=== PATIENT | female | born 1990 | race Hispanic/Latino ===

== ENCOUNTER 2017-01-19 09:56 | Emergency (ER) | payer OTHER ==
[2017-01-19 11:00] LABS: #Basophils 0.1 thou/uL (0.0-0.2); #Eosinphils 0.2 thou/uL (0.0-0.7); #Lymphocytes 1.7 thou/uL (1.20-3.40); #Monocytes 0.4 thou/uL (0.11-0.59); %Basophils 1.1 % (0.0-1.0); %Eosinophils 2.5 % (0.0-10.0); %Lymphocytes 27.4 % (21.0-51.0); %Monocytes 6.3 % (0.0-10.0); Hematocrit 41.7 % (36.0-47.0); Mean Platelet Volume 8.1 fL (7.4-10.4); Red Blood Cell (RBC) Count 4.27 mill/uL (4.20-5.40); White Blood Cell (WBC) Count 6.3 thou/uL (4.8-10.8)
[2017-01-19 11:27] LABS: ALT (SGPT) 17 U/L (8-55); AST (SGOT) 16 U/L (5-34); Alkaline Phosphatase 80 U/L (40-150); Anion Gap 10 mmol/L (10-20); BUN (Urea Nitrogen) 17 mg/dL (7.0-18.7); Bilirubin, Total 0.5 mg/dL (0.2-1.2); Calc. Creatinine Clearance 0 mL/min (70-130); Calcium 9.5 mg/dL (7.8-10.44); Carbon Dioxide 27 mmol/L (22-29); Chloride 107 mmol/L (98-107); Estimated GFR-MDRD Greater than 90; Globulin 3.3 g/dL (2.4-3.5); Lipase 21 U/L (8-78); Protein, Total 7.7 g/dL (6.0-8.3)
[2017-01-19 12:03] LABS: Bilirubin Negative (Negative); Blood, Urine Negative (Negative); Glucose, Urine (Dipstick) Negative (Negative); Ketone, Urine Negative (Negative); Nitrite Negative (Negative); Protein, Urine (Dipstick) Negative (Neg-Trace); Urobilinogen 0.2 mg/dL (0.2-1.0)
== END 2017-01-19 13:07 | disposition home or self-care (01) ==
LOC: ERS 09:56
DX: K62.5 Hemorrhage of anus and rectum (principal); G43.909 Migraine, unspecified, not intractable, without status migrainosus; J45.909 Unspecified asthma, uncomplicated; E03.9 Hypothyroidism, unspecified; F17.210 Nicotine dependence, cigarettes, uncomplicated
CPT/HCPCS: 36415; 80053; 81003; 81025; 82274; 83690; 85025; 94760

== ENCOUNTER 2018-01-16 12:44 | Emergency (ER) | payer OTHER, SELFPAY ==
[2018-01-16 13:05] LABS: #Eosinphils 0.1 thou/uL (0.0-0.7); #Monocytes 0.5 thou/uL (0.11-0.59); %Basophils 0.6 % (0.0-1.0); %Eosinophils 1.3 % (0.0-10.0); %Lymphocytes 26.6 % (21.0-51.0); %Monocytes 6.7 % (0.0-10.0); %Neutrophils 64.9 % (42.0-75.0); Hemoglobin 14.3 g/dL (12.0-16.0); Mean Corpuscular HGB CONC 33.2 g/dL (32.0-36.0); Mean Corpuscular Hemoglobin 32.7 pg (27.0-31.0); Mean Corpuscular Volume 98.5 fL (78.0-98.0); Mean Platelet Volume 8.3 fL (7.4-10.4); Platelet Count 274 thou/uL (130-400); RBC Distribution Width 11.8 % (11.5-14.5); Red Blood Cell (RBC) Count 4.39 mill/uL (4.20-5.40); White Blood Cell (WBC) Count 7.7 thou/uL (4.8-10.8)
[2018-01-16 13:18] LABS: Bilirubin Negative (Negative); Blood, Urine Negative (Negative); Clarity CLOUDY (Clear); Glucose, Urine (Dipstick) Negative (Negative); Leukocyte Moderate (Negative); Nitrite Negative (Negative); Protein, Urine (Dipstick) Trace mg/dL (Neg-Trace); Specific Gravity, Urine 1.037 (1.002-1.036); Urobilinogen 0.2 mg/dL (0.2-1.0); pH, Urine 5.5 (5.0-9.0)
[2018-01-16 13:20] LABS: Bacteria/HPF 2+ HPF (None Seen); Squamous Epithelial 21-50 HPF (0-3)
[2018-01-16 13:24] LABS: Pathc Cast-AUWi Flag 3.63 (0-2.49)
[2018-01-16 13:24] LABS: ALT (SGPT) 15 U/L (8-55); AST (SGOT) 16 U/L (5-34); Albumin 4.4 g/dL (3.5-5.0); Alkaline Phosphatase 73 U/L (40-150); Anion Gap 11 mmol/L (10-20); BUN (Urea Nitrogen) 15 mg/dL (7.0-18.7); Bilirubin, Total 0.8 mg/dL (0.2-1.2); Calc. Creatinine Clearance 0 mL/min (70-130); Calcium 9.5 mg/dL (7.8-10.44); Carbon Dioxide 24 mmol/L (22-29); Chloride 106 mmol/L (98-107); Estimated GFR-MDRD 89; Globulin 3.1 g/dL (2.4-3.5); Glucose 95 mg/dL (70-105); Lipase 16 U/L (8-78); Potassium 4.2 mmol/L (3.5-5.1); Protein, Total 7.5 g/dL (6.0-8.3); Sodium 137 mmol/L (136-145)
[2018-01-16 13:25] LABS: Pregnancy Test - Urine (BHCG) Negative (Negative); Pregu Control Background? CLEAR/WHITE (CLR/WHITE); Pregu Control Bar Appear? YES (CONTROL BAR); Specific Gravity 1.037 (1.002-1.036)
[2018-01-16] MEDS ORDERED: Ondansetron HCl/PF 4 MG/2 ML Vial ONE (13:26)
[2018-01-16 13:36] LABS: Hyaline Casts/LPF 0-3 HYALINE CAST LPF (0-3 Hyaline); Other Casts/LPF None Seen LPF (0-3 Hyaline)
[2018-01-16 13:44] LABS: RBC/HPF 0-3 HPF (0-3)
== END 2018-01-16 15:09 | disposition home or self-care (01) ==
LOC: ERS 12:44
DX: R82.71 Bacteriuria (principal); E03.9 Hypothyroidism, unspecified; G43.909 Migraine, unspecified, not intractable, without status migrainosus; J45.909 Unspecified asthma, uncomplicated; Z79.899 Other long term (current) drug therapy
CPT/HCPCS: 36415; 80053; 81003; 81015; 81025; 83690; 85025; 96361; 96374; J2405

== ENCOUNTER 2018-06-07 13:37 | Outpatient (CLI) | payer OTHER ==
--- NOTE | 2018-06-07 14:52 | ULT ---
THYROID ULTRASOUND: INDICATION: Thyroid nodule. FINDINGS: The right thyroid lobe measures 4.4 x 2.2 x 1.1 cm. The left thyroid lobe measures 3.9 x 1.4 x 1.6 c m. The thyroid isthmus measures 0.3 cm. There are numerous tiny hypoechoic nodules seen scattered t hroughout both thyroid lobes. IMPRESSION: Multinodular thyroid gland. Many of the nodules are small and subcentimeter in size. POS: GUILLERMO
== END 2018-06-07 13:38 | disposition home or self-care (01) ==
LOC: BICULT 13:37
PROVIDERS: ATTEND Student in an Organized Health Care Education/Training Program
DX: E04.1 Nontoxic single thyroid nodule (principal); E06.3 Autoimmune thyroiditis; E04.2 Nontoxic multinodular goiter
CPT/HCPCS: 76536

== ENCOUNTER 2018-12-12 17:05 | Emergency (ER) | payer SELFPAY ==
[2018-12-12 17:57] LABS: Bilirubin Negative (Negative); Blood, Urine Negative (Negative); Clarity Clear (Clear); Glucose, Urine (Dipstick) Normal (Negative); Leukocyte Negative Leu/uL (Negative); Nitrite Negative (Negative); Protein, Urine (Dipstick) 10 mg/dL (Neg-Trace); Urobilinogen Normal mg/dL (Less than 2)
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
[2018-12-12] MEDS ORDERED: Ketorolac Tromethamine 30 MG/ML VIAL ONE (18:07)
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
[2018-12-12 18:56] LABS: Pregnancy Test - Urine (BHCG) Negative (Negative); Pregu Control Background? CLEAR/WHITE (CLR/WHITE); Pregu Control Bar Appear? YES (CONTROL BAR); Specific Gravity 1.033 (1.002-1.036)
== END 2018-12-12 18:45 | disposition home or self-care (01) ==
LOC: ERS 17:05
DX: S16.1XXA Strain of muscle, fascia and tendon at neck level, initial encounter (principal); M54.5 Low back pain; R51 Headache; G43.909 Migraine, unspecified, not intractable, without status migrainosus; J45.909 Unspecified asthma, uncomplicated; E03.9 Hypothyroidism, unspecified; Z79.899 Other long term (current) drug therapy; V89.2XXA Person injured in unspecified motor-vehicle accident, traffic, initial encounter
CPT/HCPCS: 70450; 72100; 72125; 81003; 81025; 96372; J1885

== ENCOUNTER 2018-12-21 08:05 | Emergency (ER) | payer SELFPAY ==
[2018-12-21] MEDS ORDERED: Ketorolac Tromethamine 30 MG/ML VIAL ONE (08:32)
--- NOTE | 2018-12-21 08:43 | RAD ---
EXAM: XR Ankle Lt 3 View STANDARD PROVIDED CLINICAL HISTORY: Pain FINDINGS: There is no evidence for fracture or other acute osseous abnormality. Alignment appears anatomic. [place] nt spaces appear preserved. Lateral malleolar soft tissue prominence. IMPRESSION: No evidence for an acute osseous abnormality. If there is persistent clinical concern, conservative m anagement and follow-up imaging advised.
== END 2018-12-21 09:10 | disposition home or self-care (01) ==
LOC: ERS 08:05
DX: S99.912A Unspecified injury of left ankle, initial encounter (principal); E03.9 Hypothyroidism, unspecified; J45.909 Unspecified asthma, uncomplicated; G43.909 Migraine, unspecified, not intractable, without status migrainosus; Z79.899 Other long term (current) drug therapy; W01.0XXA Fall on same level from slipping, tripping and stumbling without subsequent striking against object, initial encounter
CPT/HCPCS: 96372; J1885

== ENCOUNTER 2020-07-16 11:56 | Emergency (ER) | payer OTHER, SELFPAY ==
[2020-07-16 12:47] LABS: BHCG - Serum Negative (NEGATIVE); Pregs Control Background? CLEAR/WHITE (CLR/WHITE); Pregs Control Bar Appear? YES (CONTROL BAR)
[2020-07-16 13:07] LABS: ALT (SGPT) 13 U/L (8-55); AST (SGOT) 14 U/L (5-34); Albumin 4.6 g/dL (3.5-5.0); Alkaline Phosphatase 72 U/L (40-110); Anion Gap 17 mmol/L (10-20); BUN (Urea Nitrogen) 14 mg/dL (7.0-18.7); Bilirubin, Total 0.6 mg/dL (0.2-1.2); Calc. Creatinine Clearance 0 mL/min (70-130); Calcium 9.5 mg/dL (7.8-10.44); Carbon Dioxide 23 mmol/L (22-29); Chloride 104 mmol/L (98-107); Globulin 3.1 g/dL (2.4-3.5); Glucose 112 mg/dL (70-105); Lipase 14 U/L (8-78); Potassium 3.8 mmol/L (3.5-5.1); Protein, Total 7.7 g/dL (6.0-8.3); Sodium 140 mmol/L (136-145)
[2020-07-16 13:09] LABS: Hemoglobin 14.5 g/dL (12.0-16.0); Mean Corpuscular HGB CONC 34.3 g/dL (32.0-36.0); Mean Corpuscular Hemoglobin 33.2 pg (27.0-31.0); Mean Corpuscular Volume 96.9 fL (78.0-98.0); Mean Platelet Volume 9.1 fL (7.4-10.4); Platelet Count 238 thou/uL (130-400); RBC Distribution Width 11.8 % (11.5-14.5); Red Blood Cell (RBC) Count 4.37 mill/uL (4.20-5.40); White Blood Cell (WBC) Count 19.5 thou/uL (4.8-10.8)
[2020-07-16 13:10] LABS: Band 21 % (5-11); Lymphocytes 11 % (21-51); MDiff Complete? YES; Monocytes 7 % (0-10); Neutrophil 56 % (42-75); Platelet Morphology Comment Appears Adequate; RBC Morphology Normal; Reactive Lymphocytes 5 % (0-10)
[2020-07-16] MEDS ORDERED: Iopamidol 370 76% 100 ML VIAL ONE (13:25)
[2020-07-16] MEDS ORDERED: Morphine 4 MG/ML VIAL ONE (13:31)
[2020-07-16] MEDS ORDERED: Ondansetron PF 4 MG/2 ML Vial ONE (13:31)
[2020-07-16 13:50] LABS: Bilirubin Negative (Negative); Blood, Urine Negative (Negative); Clarity Clear (Clear); Glucose, Urine (Dipstick) Normal (Negative); Ketone, Urine Negative (Negative); Leukocyte Negative Leu/uL (Negative); Nitrite Negative (Negative); Protein, Urine (Dipstick) Negative (Neg-Trace); Specific Gravity, Urine 1.018 (1.002-1.036); Urobilinogen Normal mg/dL (Less than 2)
[2020-07-16] MEDS ORDERED: Ketorolac Tromethamine 30 MG/ML VIAL ONE (14:04)
== END 2020-07-16 16:53 | disposition home or self-care (01) ==
LOC: ERS 11:56
DX: R10.31 Right lower quadrant pain (principal); D72.829 Elevated white blood cell count, unspecified; G43.909 Migraine, unspecified, not intractable, without status migrainosus; J45.909 Unspecified asthma, uncomplicated; E03.9 Hypothyroidism, unspecified; Z79.899 Other long term (current) drug therapy
CPT/HCPCS: 36415; 74177; 76856; 80053; 81003; 83605; 83690; 84443; 84703; 85025; 96374; 96375; J1885; J2270; J2405; Q9967

== ENCOUNTER 2021-09-08 15:23 | Outpatient (CLI) | payer OTHER | END 2021-09-08 15:24 | disposition home or self-care (01) | LOC: BICRAD 15:23 | PROVIDERS: ATTEND Family Medicine | DX: M25.562 Pain in left knee (principal) ==

== ENCOUNTER 2022-01-31 15:17 | Outpatient (CLI) | payer OTHER | END 2022-01-31 15:18 | disposition home or self-care (01) | LOC: ULT 15:17 | PROVIDERS: ATTEND Family Medicine | DX: E04.1 Nontoxic single thyroid nodule (principal) | CPT/HCPCS: 76536 ==

== ENCOUNTER 2024-02-18 11:06 | Outpatient (CLI) | payer OTHER | END 2024-02-18 11:07 | disposition home or self-care (01) | LOC: BICULT 11:06 | DX: O09.92 Supervision of high risk pregnancy, unspecified, second trimester (principal); Z3A.20 20 weeks gestation of pregnancy | CPT/HCPCS: 76805 ==